=== PATIENT | female | born 1995 | race Caucasian/White ===

== ENCOUNTER 2022-01-20 19:03 | Emergency (ER) | payer MEDICAID | END 2022-01-20 21:15 | disposition home or self-care (01) | LOC: JD.ED 19:03 | DX: K08.89 Other specified disorders of teeth and supporting structures (principal) | CPT/HCPCS: 99282 ==

== ENCOUNTER 2022-04-19 05:58 | Inpatient (IN) | payer MEDICAID ==
[2022-04-23] MEDS ORDERED: Lidocaine 1% 10 ML MDV ONE
[2022-04-23] MEDS ORDERED: Nalbuphine HCl 10 MG/ 1ML Amp IVPUSH PRN (07:29)
[2022-04-23] MEDS ORDERED: Sodium Chloride 0.9% 10 ML Syringe FLUSH PRN (07:29)
[2022-04-23] MEDS ORDERED: Ondansetron 4 MG/2 ML SDV IVPUSH PRN (07:29)
[2022-04-23] MEDS ORDERED: Oxytocin/Lactated Ringers 10 UNIT/1,000 ML BAG IV SCH (07:30)
[2022-04-23] MEDS: Oxytocin/Lactated Ringers 10 UNIT/1,000 ML BAG IV SCH ×2 (08:10→19:22)
[2022-04-23] MEDS: Lactated Ringers 1,000 ML IV SCH ×3 (08:10→19:21)
[2022-04-23] MEDS ORDERED: Sodium Chloride 0.9% 10 ML Syringe FLUSH SCH (09:00)
[2022-04-23] MEDS ORDERED: diphenhydrAMINE 50 MG/ML SDV IVPUSH PRN (11:07)
[2022-04-23] MEDS ORDERED: ePHEDrine 50 MG/ML SDV IVPUSH PRN (11:07)
[2022-04-23] MEDS ORDERED: fentaNYL 100 MCG/2 ML SDV EPIDUR PRN (11:07)
[2022-04-23] MEDS ORDERED: Bupivacaine/fentaNYL/NS 100 ML Bag EPIDUR PRN (11:07)
[2022-04-23] MEDS ORDERED: Acetaminophen 325 MG Tab PO PRN ×2 (15:41→21:29)
[2022-04-23] MEDS ORDERED: Benzocaine/Menthol 20%-0.5% Spray 78 GM Cannister TOP PRN (21:29)
[2022-04-23] MEDS ORDERED: Witch Hazel Medicated Pads 40/Jar TOP PRN (21:29)
[2022-04-23] MEDS ORDERED: Docusate Sodium 100 MG Cap PO PRN (21:29)
[2022-04-24] MEDS: Ibuprofen 600 MG Tab PO PRN ×2 (04:01→09:54)
[2022-04-24] MEDS: Prenatal Multivitamin with Calcium/Folic Acid/Iron Tab PO SCH ×2 (07:30→08:12)
== END 2022-04-24 20:05 | disposition home or self-care (01) | DRG 807 ==
LOC: JD.OB 04-23 06:36 → OBSVTOIN 04-23 19:01 → JD.OB 04-23 19:01
PROVIDERS: ADMIT Obstetrics & Gynecology; ATTEND Obstetrics & Gynecology
PROC: 10E0XZZ Delivery of Products of Conception, External Approach (ICD-10-PCS; principal; 2022-04-23)
PROC: 10907ZC Drainage of Amniotic Fluid, Therapeutic from Products of Conception, Via Natural or Artificial Opening (ICD-10-PCS; 2022-04-23)
PROC: 3E033VJ Introduction of Other Hormone into Peripheral Vein, Percutaneous Approach (ICD-10-PCS; 2022-04-23)
PROC: 3E0R3BZ Introduction of Anesthetic Agent into Spinal Canal, Percutaneous Approach (ICD-10-PCS; 2022-04-23)
DX: O80 Encounter for full-term uncomplicated delivery (principal); Z37.0 Single live birth; Z3A.39 39 weeks gestation of pregnancy
CPT/HCPCS: 36415; 51702; 59025; 59409; 85025; 86592; A9270-GY; J2590; J3010; J7120

== ENCOUNTER 2022-08-13 20:30 | Emergency (ER) | payer MEDICAID ==
[2022-08-13] MEDS ORDERED: Ondansetron 4 MG/2 ML SDV IVPUSH ONE (20:54)
[2022-08-13] MEDS ORDERED: HYDROmorphone 0.5 MG/0.5 ML Syringe IVPUSH ONE (20:54)
[2022-08-13] MEDS ORDERED: Sodium Chloride 0.9% 1,000 ML IV ONE (20:54)
[2022-08-13 21:45] LABS: ESTIMATED GFR 72 mL/min (>60)
[2022-08-13] MEDS ORDERED: Tamsulosin 0.4 MG Cap.ER PO ONE (23:50)
== END 2022-08-13 23:55 | disposition home or self-care (01) ==
LOC: JD.ED 20:30
DX: N13.2 Hydronephrosis with renal and ureteral calculous obstruction (principal)
CPT/HCPCS: 36415; 74177; 80053; 81001; 84702; 85025; 86140; 96361; 96374; 96375; 99284; A9270; J1170; J2405; J7030

== ENCOUNTER 2023-11-30 08:27 | Emergency (ER) | payer MEDICAID | END 2023-11-30 09:27 | disposition home or self-care (01) | LOC: JD.ED 08:27 | DX: K02.9 Dental caries, unspecified (principal) | CPT/HCPCS: 99282; 99283 ==